=== PATIENT | female | born 1990 | race Caucasian/White ===

== ENCOUNTER → 2019-05-04 | Outpatient (CLI) | payer BC | LOC: COL.RAD 13:09 | DX: R51 Headache (principal); R29.810 Facial weakness ==

== ENCOUNTER → 2020-11-30 | Outpatient (CLI) | payer BC ==
[~2020-11-30] MED LIST: FORFIVO XL450 MG PO; MAG-OX 400400 MG/TAB PO
== END ==
LOC: COL.RAD 10:37
DX: G62.9 Polyneuropathy, unspecified (principal)